=== PATIENT | female | born 1975 | race Caucasian/White ===

== ENCOUNTER 2017-02-04 14:26 | Emergency (ER) | payer OTHER ==
--- NOTE | 2017-02-04 15:14 | EDM.PDOC ---
ED HPI GENERAL MEDICAL PROBLEM - General Chief Complaint: Chest Pain Stated Complaint: PAIN IN CHEST AREA Time Seen by Provider: 02/04/17 14:50 Source of Information: Reports: Patient, Family History Limitations: Reports: No Limitations - History of Present Illness INITIAL COMMENTS - FREE TEXT/NARRATIVE: 41-year-old female has had a generalized soreness in her chest for the past week , today suddenly developed a pain under her left arm making her very nervous she was having a "heart attack". This occurred several hours ago. She has intermittent shortness of breath but no fever. No nausea or vomiting. 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: Neurological History: Reports: Migraines - Infectious Disease History Infectious Disease History: Reports: C-Difficile - Past Surgical History Female Surgical History: Reports: Section Social & Family History - Tobacco Use Smoking Status *Q: Never Smoker - Caffeine Use Caffeine Use: Reports: Tea - Recreational Drug Use Recreational Drug Use: No ED ROS GENERAL - Review of Systems Review Of Systems: See Below Constitutional: Denies: Fever, Chills Respiratory: Reports: Shortness of Breath (Intermittent), Pleuritic Chest Pain ( Anterior right chest discomfort with breathing and certain movements) Cardiovascular: Reports: Chest Pain. Denies: Dyspnea on Exertion, Palpitations GI/Abdominal: Denies: Abdominal Pain, Nausea, Vomiting Skin: Reports: No Symptoms. Denies: Diaphoresis Neurological: Denies: Headache Psychiatric: Reports: Anxiety ED EXAM, GENERAL - Physical Exam Exam: See Below Exam Limited By: No Limitations General Appearance: Alert, Anxious (Very anxious) Eye Exam: Bilateral Eye: Normal Inspection Head: Atraumatic Respiratory/Chest: No Respiratory Distress, Lungs Clear Cardiovascular: Regular Rate, Rhythm, No Murmur GI/Abdominal: Soft, Non-Tender Extremities: Normal Inspection. No: Pedal Edema Neurological: Alert, Oriented Psychiatric: Anxious Skin Exam: Warm, Dry EKG INTERPRETATION Rhythm: NSR Course - Vital Signs Last Recorded V/S: Last Vital Signs Temp 97.0 F 02/04/17 16:21 Pulse 81 02/04/17 14:36 Resp 14 02/04/17 16:21 BP 113/59 L 02/04/17 16:21 Pulse Ox 96 02/04/17 16:21 - Orders/Labs/Meds Orders: Active Orders 24 hr Category Date Time Status EKG Documentation Completion [RC] ASDIRECTED Care 02/04/17 15:10 Active Chest 2V [CR] Routine Exams 02/04/17 15:10 Taken EKG 12 Lead [EK] Routine Ther 02/04/17 15:10 Ordered Labs: Laboratory Tests 02/04/17 02/04/17 Range/Units 15:10 15:25 WBC 4.4 L (4.5-11.0) K/uL RBC 3.91 (3.30-5.50) M/uL Hgb 11.1 L (12.0-15.0) g/dL Hct 34.4 L (36.0-48.0) % MCV 88 (80-98) fL MCH 28 (27-31) pg MCHC 32 (32-36) % Plt Count 276 (150-400) K/uL Neut % (Auto) 52 (36-66) % Lymph % (Auto) 33 (24-44) % Kerr % (Auto) 12 H (2-6) % Eos % (Auto) 4 (2-4) % Baso % (Auto) 0 (0-1) % Sodium 141 (140-148) mmol/L Potassium 3.8 (3.6-5.2) mmol/L Chloride 104 (100-108) mmol/L Carbon Dioxide 27 (21-32) mmol/L Anion Gap 10.4 (5.0-14.0) mmol/L BUN 10 (7-18) mg/dL Creatinine 0.7 (0.6-1.0) mg/dL Est Cr Clr Drug Dosing 91.33 mL/min Estimated GFR (MDRD) > 60 (>60) Glucose 97 (74-106) mg/dL Calcium 8.6 (8.5-10.1) mg/dL Total Bilirubin 0.3 (0.2-1.0) mg/dL AST 19 (15-37) U/L ALT 24 (12-78) U/L Alkaline Phosphatase 46 (46-116) U/L Troponin I < 0.017 (0.000-0.056) ng/mL Total Protein 7.1 (6.4-8.2) g/dL Albumin 3.7 (3.4-5.0) g/dL Globulin 3.4 (2.3-3.5) g/dL Albumin/Globulin Ratio 1.1 L (1.2-2.2) - Re-Assessments/Exams Free Text/Narrative Re-Assessment/Exam: 02/04/17 15:13 EKG was done which was normal. O2 saturations remained at 100%,I tried to calm the patient down with reassurance. A CBC, CMP, troponin will be obtained as well as a two-view chest x-ray. 02/04/17 16:10 Chest x-ray was normal, CBC and troponin were reassuring, CMP was normal. Patient did calm down and O2 saturations leveled at 98%. She was still anxious and worried but was reassured. Copies of her labs were given to her she can follow-up next week if not improving satisfactorily. I recommended Tylenol 2 or 3 times daily for the next several days. Departure - Departure Time of Disposition: 16:22 Disposition: Home, Self-Care 01 Condition: Good Clinical Impression: Atypical chest pain - Discharge Information Instructions: Nonspecific Chest Pain, [id number] Referrals: PCP,None [Primary Care Provider] - Forms: ED Department Discharge Care Plan Goals: Increase activity as tolerated and try Tylenol 2 or 3 times daily for the next few days. Recheck with her primary provider next week and discuss any further evaluation needed if you do not feel you are improving satisfactorily. A stress test could be considered. - My Orders Last 24 Hours: My Active Orders 02/04/17 15:10 EKG Documentation Completion [RC] ASDIRECTED Chest 2V [CR] Routine EKG 12 Lead [EK] Routine - Assessment/Plan Last 24 Hours: My Active Orders 02/04/17 15:10 EKG Documentation Completion [RC] ASDIRECTED Chest 2V [CR] Routine EKG 12 Lead [EK] Routine
--- NOTE | 2017-02-06 09:26 | CR ---
Chest 2V INDICATION: dyspnea COMPARISON: None FINDINGS: Two views. Heart size normal. Lungs are clear. No infiltrate or pleural effusion. No sig ns of pulmonary edema. IMPRESSION: Negative chest.
== END 2017-02-04 16:23 | disposition home or self-care (01) ==
LOC: JP.ED 14:26
DX: R07.89 Other chest pain (principal)
CPT/HCPCS: 36415; 71020; 71020-26; 80053; 84484; 85025; 93005; 99285-25